=== PATIENT | female | born 1990 | race Caucasian/White ===

== ENCOUNTER 2021-06-05 23:33 | Day surgery (SDC) | payer SELFPAY ==
[~2021-06-05] VITALS: Ht 160 cm; Wt 72.6 kg
[2021-06-06] VITALS (9 sets, daily range): BP systolic 95–131; BP diastolic 66–89
--- NOTE | 2021-06-06 00:54 | ED General ---
General Chief Complaint: Skin/Wound Problems Stated Complaint: RT BREAST PAIN Nursing Triage Note: RIGHT BREAST PAIN/REDNESS/WARMTH AFTER NIPPLE PIERCING APPROX. 3 MONTHS AGO. REPORTS BEING SEEN AT [facility] X2 ET. GIVEN 2 DIFFERENT ANTIBIOTICS WITHOUT IMPROVEMENT. Source of Information: Patient (MICHAEL ANGUIANO) History of Present Illness Date Seen by Provider: Jun 06, 2021 Time Seen by Provider: 00:30 Initial Comments CC: R Breast Pain 31 yo female presents to ED with Right breast pain. Pain began 3 months ago after patient let friend coello her nipples. Patient states that the right nipple piercing became infected the next day, but managed the infection with remedies found online. 2.5 months later, patient noticed pain, redness and swelling in the same breast and sought a physician. Was placed on an unknown antibiotic at that time. Patient reports the infection stayed the same or got worse and returned to the physician 4 days later. Antibiotic was changed to doxycycline. Has been taking doxycycline for 9 days but infection has gotten worse. Currently rates the pain as an 11 out of 10. The pain does get better with ice packs. Reports the infection was initially 3-4 cm and now has progresse d to the lower half of the breast tissue. Timing/Duration: 1 Week Severity: Severe Modifying Factors: improves with Other (Heat Therapy) Associated Systoms: No Chest Pain, No Cough, No Diaphoresis; Fever/Chills (Chills no fever); No Headaches, No Nausea/Vomiting, No Rash, No Shortness of Air, No Weakness (MICHAEL ANGUIANO) Allergies and Home Medications Allergies Coded Allergies: No Known Drug Allergies (Unverified , 06/06/21) Patient Home Medication List Home Medication List Reviewed: Yes (VANDANA YIN) Review of Systems Review of Systems Constitutional: chills; No fever, No weakness EENTM: No ear pain, No eye pain Respiratory: No cough, No short of breath Cardiovascular: No chest pain, No palpitations Gastrointestinal: No abdominal pain, No nausea, No vomiting Musculoskeletal: No joint pain, No muscle pain, No muscle weakness Skin: No change in hair/nails; lesions; No rash Psychiatric/Neurological: Denies Anxiety, Denies Depressed Hematologic/Lymphatic: Denies Easy Bleeding; Easy Bruising (MICHAEL ANGUIANO) Past Qoeutgn-Lkvhak-Fmkicr Hx Patient Social History Tobacco Use?: Yes Tobacco type used: Cigarettes Smoking Status: Current Everyday Smoker Substance use?: No Alcohol Use?: Yes Alcohol Frequency: Once in a while Pt feels they are or have been: No (MICHAEL ANGUIANO) Tobacco Use?: No Use of E-Cig and/or Vaping dev: No (VANDANA YIN) Immunizations Up To Date First/Initial COVID19 Vaccinat: 04/15 Second COVID19 Vaccination Russell: 05/16 COVID19 Vaccine Integration Solution Architect: MODERNA (MICHAEL ANGUIANO) Past Medical History Surgery/Hospitalization HX: (MICHAEL ANGUIANO) Physical Exam Vital Signs Vital Signs - First Documented 06/06/21 00:01 Temp 37.0 Pulse 118 Resp 18 B/P (MAP) 153/77 (102) Pulse Ox 100 O2 Delivery Room Air (VANDANA YIN) Vital Signs Capillary Refill : Less Than 3 Seconds (MICHAEL ANGUIANO) Height, Weight, BMI Height: '" Weight: lbs. oz. kg; 28.00 BMI Method: General Appearance: WD/WN, Mild Distress Respiratory: Chest Non Tender, Lungs Clear, Normal Breath Sounds, No Accessory Muscle Use, No Respiratory Distress Cardiovascular: No Edema, No Murmur, Normal Peripheral Pulses (Radial pulse) Extremity: No Calf Tenderness, No Pedal Edema Neurologic/Psychiatric: Alert, Oriented x3 Skin: Erythema (Right breast and nipple), Other (Swelling of right breast) (MICHAEL ANGUIANO) Skin: Other (Swelling of lower half of the right breast with pointing and fluctuance, induration and very tender to palpation.) (VANDANA YIN) Progress/Results/Core Measures Suspected Sepsis SIRS Temperature: Pulse: 118 Respiratory Rate: 18 Blood Pressure 153 /77 Mean: 102 (MICHAEL ANGUIANO) Results/Orders Lab Results Laboratory Tests Test 06/06/21 01:22 Range/Units White Blood Count 15.8 H 4.3-11.0 10^3/uL Red Blood Count 4.68 3.80-5.11 10^6/uL Hemoglobin 14.5 11.5-16.0 g/dL Hematocrit 44 35-52 % Mean Corpuscular Volume 93 80-99 fL Mean Corpuscular Hemoglobin 31 25-34 pg Mean Corpuscular Hemoglobin Concent 33 32-36 g/dL Red Cell Distribution Width 13.0 10.0-14.5 % Platelet Count 349 130-400 10^3/uL Mean Platelet Volume 9.8 9.0-12.2 fL Immature Granulocyte % (Auto) 1 % Neutrophils (%) (Auto) 66 42-75 % Lymphocytes (%) (Auto) 25 12-44 % Monocytes (%) (Auto) 6 0-12 % Eosinophils (%) (Auto) 2 0-10 % Basophils (%) (Auto) 0 0-10 % Neutrophils # (Auto) 10.4 H 1.8-7.8 10^3/uL Lymphocytes # (Auto) 3.9 1.0-4.0 10^3/uL Monocytes # (Auto) 1.0 0.0-1.0 10^3/uL Eosinophils # (Auto) 0.4 H 0.0-0.3 10^3/uL Basophils # (Auto) 0.1 0.0-0.1 10^3/uL Immature Granulocyte # (Auto) 0.1 0.0-0.1 10^3/uL Neutrophils % (Manual) 73 % Lymphocytes % (Manual) 22 % Monocytes % (Manual) 2 % Eosinophils % (Manual) 3 % Sodium Level 141 135-145 MMOL/L Potassium Level 3.7 3.6-5.0 MMOL/L Chloride Level 105 98-107 MMOL/L Carbon Dioxide Level 24 21-32 MMOL/L Anion Gap 12 5-14 MMOL/L Blood Urea Nitrogen 12 7-18 MG/DL Creatinine 0.74 0.60-1.30 MG/DL Estimat Glomerular Filtration Rate 93 BUN/Creatinine Ratio 16 Glucose Level 102 70-105 MG/DL Calcium Level 9.5 8.5-10.1 MG/DL Corrected Calcium 9.7 8.5-10.1 MG/DL Total Bilirubin 0.2 0.1-1.0 MG/DL Aspartate Amino Transf (AST/SGOT) 16 5-34 U/L Alanine Aminotransferase (ALT/SGPT) 16 0-55 U/L Alkaline Phosphatase 101 40-136 U/L Total Protein 7.6 6.4-8.2 GM/DL Albumin 3.8 3.2-4.5 GM/DL (VANDANA YIN) My Orders Orders - VANDANA YIN Cbc With Automated Diff (06/06/21 01:05) Comprehensive Metabolic Panel (06/06/21 01:05) Fentanyl Inj (Sublimaze Injection) (06/06/21 01:15) Ed Iv/Invasive Line Start (06/06/21 01:06) Lactated Ringers (Lr 1000 Ml Iv Solution (06/06/21 01:15) Ceftriaxone (Rocephin) (06/06/21 01:15) Manual Differential (06/06/21 01:22) (VANDANA YIN) Medications Given in ED Current Medications Medications Dose Ordered Sig/Agustín Route Start Time Stop Time Status Last Admin Dose Admin Ceftriaxone Sodium 1000 mg/ Sterile Water 10 ml @ 200 mls/hr ONCE ONCE IV 06/06/21 01:15 06/06/21 01:17 DC 06/06/21 01:27 200 MLS/HR Fentanyl Citrate 75 mcg ONCE ONCE IVP 06/06/21 01:15 06/06/21 01:16 DC 06/06/21 01:27 75 MCG Lactated Ringer's 1,000 ml @ 0 mls/hr Q0M ONCE IV 06/06/21 01:15 06/06/21 01:16 DC 06/06/21 01:27 0 MLS/HR (VANDANA YIN) Vital Signs/I&O 06/06/21 06/06/21 00:01 01:27 Temp 37.0 37.0 Pulse 118 Resp 18 B/P (MAP) 153/77 (102) Pulse Ox 100 O2 Delivery Room Air (VANDANA YIN) Vital Signs/I&O Capillary Refill : Less Than 3 Seconds (MICHAEL ANGUIANO) Blood Pressure Mean: 102 Progress Note : Time: 01:45 Progress Note Patient is hesitant to stay in the hospital or have surgery because she is afraid she does not have insurance and will not bill afford it and she does not want to lose her job. We explained to her that this is beyond our ability to drain here in the emergency room and this needs to go to the OR. We did have a clinically supported decision-making process and which the patient did agree to stay in the hospital overnight on observation to go to the OR in the morning. Dr. Mcclure to the ER because he was already here for another patient and examined the patient and agrees with taken the patient to the OR in the morning. N.p.o. I attest that I saw this patient alongside the medical student and agree with his documented history, physical exam and review of systems except as otherwise noted. (VANDANA YIN) Departure Communication (Admissions) Time/Spoke to Admitting Phy: 01:00 Dr. Barclay agrees to observe the patient overnight, n.p.o. IV fluids antibiotics and to the OR in the morning. (VANDANA YIN) Impression Primary Impression: Abscess of right breast Disposition: ADMITTED INPATIENT Condition: Stable Admissions Decision to Admit Reason: Admit from ER (General) Decision to Admit/Date: Jun 06, 2021 Time/Decision to Admit Time: 01:00 (VANDANA YIN) Departure-Patient Inst. Referrals: [facility]/ (PCP) Primary Care Physician NOA GARZA APRN (Family) Primary Care Physician MICHAEL ANGUIANO [facility] Jun 06, 2021 00:54 VANDANA YIN Jun 06, 2021 01:46
[2021-06-06] MEDS ORDERED: cefTRIAXone 1,000 MG in WATER (STERILE) FOR INJECTION 10 ML IV ONE (01:15)
[2021-06-06] MEDS ORDERED: LACTATED RINGERS 1,000 ML IV ONE (01:15)
[2021-06-06] MEDS ORDERED: fentaNYL INJ 100 MCG/2 ML AMP IVP ONE ×2 (01:15→11:30)
[2021-06-06 01:39] LABS: BASOPHILS # (AUTO) 0.1 10^3/uL (0.0-0.1); BASOPHILS % (AUTO) 0 % (0-10); EOSINOPHILS # (AUTO) 0.4 10^3/uL (0.0-0.3); EOSINOPHILS % (AUTO) 2 % (0-10); HEMATOCRIT 44 % (35-52); HEMOGLOBIN 14.5 g/dL (11.5-16.0); LYMPHOCYTES # (AUTO) 3.9 10^3/uL (1.0-4.0); LYMPHOCYTES % (AUTO) 25 % (12-44); MEAN CORPUSCULAR HEMOGLOBIN 31 pg (25-34); MEAN CORPUSCULAR HGB CONC 33 g/dL (32-36); MEAN CORPUSCULAR VOLUME 93 fL (80-99); MEAN PLATELET VOLUME 9.8 fL (9.0-12.2); MONOCYTES % (AUTO) 6 % (0-12); NEUTROPHILS # (AUTO) 10.4 10^3/uL (1.8-7.8); NEUTROPHILS % (AUTO) 66 % (42-75); PLATELET COUNT 349 10^3/uL (130-400); WHITE BLOOD COUNT 15.8 10^3/uL (4.3-11.0)
[2021-06-06 01:48] LABS: ALBUMIN 3.8 GM/DL (3.2-4.5); POTASSIUM 3.7 MMOL/L (3.6-5.0)
[2021-06-06 01:49] LABS: CALCIUM 9.5 MG/DL (8.5-10.1)
[2021-06-06 01:50] LABS: TOTAL PROTEIN 7.6 GM/DL (6.4-8.2)
[2021-06-06 01:52] LABS: BILIRUBIN,TOTAL 0.2 MG/DL (0.1-1.0)
[2021-06-06 01:54] LABS: CREATININE SERUM 0.74 MG/DL (0.60-1.30)
[2021-06-06] MEDS ORDERED: HYDROmorphone 2 MG/ML VIAL (DILAUDID) IV ONE ×2 (02:00→10:15)
[2021-06-06 02:35] LABS: EOSINOPHILS % (MANUAL) 3 %; LYMPHOCYTES % (MANUAL) 22 %; MONOCYTES % (MANUAL) 2 %; NEUTROPHILS % (MANUAL) 73 %
[2021-06-06] MEDS ORDERED: KETOROLAC 15 MG/ML VIAL IVP PRN (03:00)
[2021-06-06] MEDS ORDERED: ONDANSETRON 4 MG/2 ML (SDV) Z0FRAN IVP PRN ×2 (03:00→11:30)
[2021-06-06] MEDS ORDERED: HYDROmorphone 2 MG/ML VIAL (DILAUDID) IV PRN (03:00)
[2021-06-06] MEDS ORDERED: ACETAMINOPHEN 650 MG SUPP (TYLENOL) PR PRN (03:00)
[2021-06-06] MEDS: LACTATED RINGERS 1,000 ML IV SCH ×2 (03:02→12:49)
[2021-06-06] MEDS: fentaNYL INJ 100 MCG/2 ML AMP IVP PRN ×2 (03:03→07:50)
--- NOTE | 2021-06-06 09:31 | Consultation - Surgery ---
ANDERSON SALAS MED STUDENT 06/06/21 0931: History of Present Illness History of Present Illness Patient Consulted On(kavitha/time) 06/06/21 09:26 Date Seen by Provider: Jun 06, 2021 Time Seen by Provider: 09:00 Reason for Visit: breast redness/swelling History of Present Illness surgery consult for: R breast abscess 31 y/o F states she had her nipples pierced 3 months ago and her R breast got infected at that time. The issue resolved spontaneously. About 2 weeks ago she complained of R breast pain, went to [facility] and was given abx. It didn't improve at that time and the abx were switched. Her pain, redness, swelling, and pain has not improved. Her pain is 10/10. She denies drainage but feels very nauseous. Allergies and Home Medications Allergies Coded Allergies: No Known Drug Allergies (Unverified , 06/06/21) Past Gooxwvj-Mrxmml-Urlyza Hx Patient Social History Smoking Status: Current Everyday Smoker (1ppd for 10 yrs) Type Used: Cigarettes Alcohol Use?: Yes Have you traveled recently?: No Surgeries History of Surgeries: Yes Surgeries: Section Respiratory History of Respiratory Disorde: No Cardiovascular History of Cardiac Disorders: No Neurological History of Neurological Disord: No Reproductive System : No Genitourinary History of Genitourinary Disor: No Gastrointestinal History of Gastrointestinal Di: No Musculoskeletal History of Musculoskeletal Dis: No Endocrine History of Endocrine Disorders: No HEENT History of HEENT Disorders: No Cancer History of Cancer: No Psychosocial History of Psychiatric Problem: No Integumentary History of Skin or Integumenta: No Family Medical History Significant Family History: Heart Disease (grandma), Other Conditions/Hx (mom - DM) Review of Systems-General Constitutional: No dizziness, No fever, No malaise, No weakness EENTM: No hearing loss, No ear pain, No blurred vision, No double vision Respiratory: No cough, No dyspnea on exertion, No short of breath Cardiovascular: chest pain (R breast tenderness); No edema Gastrointestinal: No abdominal pain, No constipation, No diarrhea, No hematemesis Genitourinary: No dysuria, No frequency Musculoskeletal: No back pain, No muscle pain Skin: change in color (right breast swelling, redness lower quadrants) Psychiatric/Neurological: Denies Headache, Denies Numbness, Denies Paresthesia Physical Exam-General Problems Physical Exam Vital Signs Vital Signs - First Documented 06/06/21 00:01 Temp 37.0 Pulse 118 Resp 18 B/P (MAP) 153/77 (102) Pulse Ox 100 O2 Delivery Room Air Capillary Refill : Less Than 3 Seconds General Appearance: mild distress Eyes: Bilateral Eye PERRL, Bilateral Eye EOMI Neck: non-tender, full range of motion Respiratory: lungs clear, normal breath sounds Cardiovascular: regular rate, rhythm, no edema, no murmur Gastrointestinal: normal bowel sounds, non tender, soft, no organomegaly Extremities: non-tender, no pedal edema, no calf tenderness Neurologic/Psychiatric: body designer II-XII nml as tested, no motor/sensory deficits, alert, oriented x 3 Skin: other (erythematous, swollen, warm, very tender, nodule in R lower quadrants of breasts) Data Review Labs Laboratory Tests 06/06/21 01:22: White Blood Count 15.8H, Red Blood Count 4.68, Hemoglobin 14.5, Hematocrit 44, Mean Corpuscular Volume 93, Mean Corpuscular Hemoglobin 31, Mean Corpuscular Hemoglobin Concent 33, Red Cell Distribution Width 13.0, Platelet Count 349, Mean Platelet Volume 9.8, Immature Granulocyte % (Auto) 1, Neutrophils (%) (Auto) 66, Lymphocytes (%) (Auto) 25, Monocytes (%) (Auto) 6, Eosinophils (%) (Auto) 2, Basophils (%) (Auto) 0, Neutrophils # (Auto) 10.4H, Lymphocytes # (Auto) 3.9, Monocytes # (Auto) 1.0, Eosinophils # (Auto) 0.4H, Basophils # (Auto) 0.1, Immature Granulocyte # (Auto) 0.1, Neutrophils % (Manual) 73, Lymphocytes % (Manual) 22, Monocytes % (Manual) 2, Eosinophils % (Manual) 3, Sodium Level 141, Potassium Level 3.7, Chloride Level 105, Carbon Dioxide Level 24, Anion Gap 12, Blood Urea Nitrogen 12, Creatinine 0.74, Estimat Glomerular Filtration Rate 93, BUN/Creatinine Ratio 16, Glucose Level 102, Calcium Level 9.5, Corrected Calcium 9.7, Total Bilirubin 0.2, Aspartate Amino Transf (AST/SGOT) 16, Alanine Aminotransferase (ALT/SGPT) 16, Alkaline Phosphatase 101, Total Protein 7.6, Albumin 3.8 06/06/21 08:18: SARS-CoV-2 RNA (RT-PCR) Not Detected 06/06/21 08:55: Urine Test NEGATIVE Assessment/Plan Assessment/Plan Admission Diagonsis right breast abscess leukocytosis nausea Plan is to go to OR this AM for I&D of breast abscess. Pt given antiemetic medication this morning. Continue abx. TRINO VORA Carroll DO 06/06/21 1021: History of Present Illness History of Present Illness Time Seen by Provider: 02:58 History of Present Illness HPI from ED: CC: R Breast Pain 31 yo female presents to ED with Right breast pain. Pain began 3 months ago after patient let friend coello her nipples. Patient states that the right nipple piercing became infected the next day, but managed the infection with remedies found online. 2.5 months later, patient noticed pain, redness and swelling in the same breast and sought a physician. Was placed on an unknown antibiotic at that time. Patient reports the infection stayed the same or got worse and returned to the physician 4 days later. Antibiotic was changed to doxycycline. Has been taking doxycycline for 9 days but infection has gotten worse. Currently rates the pain as an 11 out of 10. The pain does get better with ice packs. Reports the infection was initially 3-4 cm and now has progressed to the lower half of the breast tissue. Timing/Duration: 1 Week Severity: Severe Modifying Factors: improves with Other (Heat Therapy) Associated Systoms: No Chest Pain, No Cough, No Diaphoresis; Fever/Chills (Chills no fever); No Headaches, No Nausea/Vomiting, No Rash, No Shortness of Air, No Weakness When I saw pt last night in the ER she was in pain, this am it looks like it might be worse. She rates paint 10 out of 10. Allergies and Home Medications Allergies Coded Allergies: No Known Drug Allergies (Unverified , 06/06/21) Patient Home Medication List Home Medication List Reviewed: Yes Past Igptipq-Qmtdhd-Ptukyg Hx Patient Social History Smoking Status: Current Everyday Smoker (1ppd for 10 yrs) Type Used: Cigarettes Surgeries History of Surgeries: Yes Surgeries: Section Respiratory History of Respiratory Disorde: No Cardiovascular History of Cardiac Disorders: No Neurological History of Neurological Disord: No Reproductive System : No Genitourinary History of Genitourinary Disor: No Gastrointestinal History of Gastrointestinal Di: No Musculoskeletal History of Musculoskeletal Dis: No Endocrine History of Endocrine Disorders: No HEENT History of HEENT Disorders: No Loss of Vision: Denies Hearing Impairment: Denies Cancer History of Cancer: No Psychosocial History of Psychiatric Problem: No Integumentary History of Skin or Integumenta: Yes Skin/Integumentary Disorders: Recent Skin Changes Family Medical History Significant Family History: Heart Disease (grandma), Diabetes (mother) Review of Systems-General Constitutional: No dizziness, No fever, No malaise, No weakness EENTM: No hearing loss, No ear pain, No blurred vision, No double vision Respiratory: No cough, No dyspnea on exertion, No short of breath Cardiovascular: chest pain (R breast tenderness); No edema Gastrointestinal: No abdominal pain, No constipation, No diarrhea, No hematemesis; nausea Genitourinary: No dysuria, No frequency Musculoskeletal: No back pain, No muscle pain Skin: change in color (right breast swelling, redness lower quadrants) Psychiatric/Neurological: Denies Headache, Denies Numbness, Denies Paresthesia Physical Exam-General Problems Physical Exam General Appearance: WD/WN, severe distress Eyes: Bilateral Eye PERRL, Bilateral Eye EOMI HEENT: pharynx normal; No scleral icterus (R), No scleral icterus (L) Neck: non-tender, full range of motion Respiratory: lungs clear, normal breath sounds, no respiratory distress, no accessory muscle use Cardiovascular: regular rate, rhythm, no murmur Gastrointestinal: normal bowel sounds, non tender, soft, no organomegaly Extremities: non-tender, no pedal edema, no calf tenderness Neurologic/Psychiatric: body designer II-XII nml as tested, no motor/sensory deficits, alert, oriented x 3 Skin: other (erythematous, swollen, warm, very tender, nodule in R lower quadrants of breasts) Lymphatic: no adenopathy (neck or groin), axilla node tender (R) Assessment/Plan Assessment/Plan Assessment/Plan right breast abscess leukocytosis nausea Plan is to go to OR this AM for I&D of breast abscess. Pt given antiemetic medication this morning. Continue abx. Discussed surgery with pt; risks and complications not limited to pain, bleeding, infection, scar. Will most likely have to pack breast and then change packing daily. Will get cultures so we can tailor ABX to correct bacteria. All questions answered to her satisfaction. Supervisory-Addendum Brief Verification & Attestation Participated in pt care: history, MDM, physical Personally performed: exam, history, MDM, supervision of care Care discussed with: Medical Student Procedures: n/a Verification and Attestation of Medical Student E/M Service A medical student performed and documented this service. I then reviewed and verified all information documented by the medical student and made modifications to such information, when appropriate. I personally performed a physical exam, medical decision making and then discussed any differences between the notes and made revisions as necessary to create one note. Trino Vora , 06/06/21 , 10:23 ANDERSON SALAS MED STUDENT Jun 06, 2021 09:31 TRINO VORA DO Jun 06, 2021 10:21
[2021-06-06] MEDS ORDERED: MIDAZOLAM 2 MG/2 ML (VERSED) VIAL ONE (10:25)
[2021-06-06] MEDS ORDERED: proPOfol 200 MG/20 ML (DIPRIVAN) VIAL IV ONE (10:25)
[2021-06-06] MEDS ORDERED: LIDOCAINE PF 2% 5 ML (XYLOCAINE) VIAL ONE (10:25)
[2021-06-06] MEDS ORDERED: SEVOFLURANE (ULTANE) 15 ML INHAL SOLN ONE ×2 (10:25→11:02)
[2021-06-06] MEDS ORDERED: fentaNYL INJ 100 MCG/2 ML AMP ONE (10:25)
[2021-06-06] MEDS ORDERED: ONDANSETRON 4 MG/2 ML (SDV) Z0FRAN ONE (10:25)
[2021-06-06] MEDS ORDERED: KETOROLAC 30 MG/ML VIAL ONE (11:03)
--- NOTE | 2021-06-06 11:07 | Progress Note-Post Operative ---
Post-Operative Progess Note Surgeon (s)/Operation Research Analyst (s) Surgeon TRINO VORA DO Operation Research Analyst: none Pre-Operative Diagnosis Right breast abscess Post-Operative Diagnosis same Procedure & Operative Findings Date of Procedure 06/06/21 Procedure Performed/Findings I&D with packing right breast Anesthesia Type LMA Estimated Blood Loss Estimated blood loss (mL): scant Specimens/Packing Specimens Removed abscess culture TRINO VORA DO Jun 06, 2021 11:07
[2021-06-06] MEDS ORDERED: LACTATED RINGERS 1,000 ML IV PRN (11:15)
[2021-06-06] MEDS ORDERED: SULF1TAB38 PO (14:08)
[2021-06-06] MEDS ORDERED: ACHD5005 PO (14:08)
--- NOTE | 2021-06-06 14:10 | Discharge Inst-Surgical ---
Discharge Inst-Surgical Depart Medication/Instructions New, Converted or Re-Newed RX: Transmitted to Pharmacy Patient Instructions Follow up Appt: Make appointment for 1 week. [phone]. Come to office on Tuesday to have nurses change packing. Instructions: No strenuous activity. May shower in 24 hours, no tub bath or soaking. Use incentive spirometer at home as directed. No Smoking Skin/Wound Care: You need to leave the bandages in place and come in to have packing changed. Symptoms to Report: Appetite Changes, Extremity Discoloration, Numbness/Tingling, Swelling Increased, Bleeding Excessive, Eyesight Changes, Pain Increased, Urine Color Change, Constipation(Persistent), Fever over 101 degree F, Pain/Pressure in chest, Urinating Difficulty, Cough Up/Vomit Blood, Heart Beat Irreg/Pounding, Pain/Pressure in jaw, Cramps in feet or legs, Lightheadedness, Pain/Pressure in shoulder, Diarrhea(Persistent), Memory Changes Suddenly, Questions/Concerns, Weight gain consecutive days, Dizziness/Fainting, Nausea/Vomiting, Shortness of Breath, Weight gain over 2 pounds If questions or concerns contact your physician Or seek help at emergency department. Activity Activity as Tolerated: Yes Activity Instructions: Avoid Stress to Incision Driving Instructions: No Driving/Refer to Dr. Parish Discharge Diet: No Restrictions Diet After 24 Hours: Clear Liquid if Nauseous If Any Problems/Questions/Issu: Contact Your Physician, Go to Emergency Room Skin/Wound Care Infection Signs and Symptoms: Increased Redness, Foul Odor of Wound, Increased Drainage, Skin Itchy or Has a Rash, Increased Swelling, Temperature Above 101 F Operative Area Clean and Dry: Do Not Remove Bandage TRINO VORA DO Jun 06, 2021 14:10
--- NOTE | 2021-06-06 14:17 | OPERATIVE REPORT ---
DATE OF SERVICE: PREOPERATIVE DIAGNOSIS: Right breast abscess. POSTOPERATIVE DIAGNOSIS: Right breast abscess. PROCEDURE: Incision and drainage, right breast abscess with packing. SURGEON: Poncho Barclay DO MARKET RESEARCH INTERN: None. ANESTHESIA: LMA. SPECIMEN: Abscess culture. BLOOD LOSS: Scant. FLUIDS: Per anesthesia. POSTOPERATIVE CONDITION: Stable. INDICATION FOR PROCEDURE: The patient is a 31-year-old female who has a right breast abscess. She was in severe pain from this, site was marked preoperatively. FINDINGS: The patient had a right breast abscess mostly superficial, but extending from about the 2 o'clock to about the 10 o'clock position. PROCEDURE NOTE: After informed consent was obtained, the patient was brought to the operating room, placed on table in supine position. Right-sided marked, timeout was done. Everyone concurred. Made an incision right along the 6 o'clock access just below the nipple areolar complex and immediately got out purulent fluid. This was cultured to then be sent to pathology, expressed all the fluid. This abscess cavity went up to about the 2 o'clock position and around to about the 10 o'clock position and then down about 4 or 5 cm distally and about 3 to 4 cm outside the areolar complex, copiously irrigated with normal saline. Hemostasis obtained using Bovie electrocautery and then elected to pack with half-inch iodoform packing. Area was then cleaned and dried. Fluff dressing and then ABDs and Mg wrap was placed. The patient tolerated the procedure. Sponge, instrument and needle count correct at the end of the case. Job ID: [id number] DocumentID: [id number] Dictated Date: 06/06/2021 11:06:30 Wrapper Sorter Date: 06/06/2021 14:15:12 Dictated By: PONCHO BARCLAY DO
--- NOTE | 2021-06-06 18:54 | Anesthesia-General Post-Op ---
General Patient Condition Mental Status/LOC: Same as Preop Cardiovascular: Satisfactory Nausea/Vomiting: Absent Respiratory: Satisfactory Pain: Controlled Complications: Absent Post Op Complications Complications None Follow Up Care/Instructions Patient Instructions None needed. Anesthesia/Patient Condition Patient Condition Patient is doing well, no complaints, stable vital signs, no apparent adverse anesthesia problems. No complications reported per nursing. [place] [facility] [place]: Yes MICHAEL SHORT CRNA Jun 06, 2021 18:54
== END 2021-06-06 17:25 | disposition home or self-care (01) ==
LOC: ER 23:38 → SDC 23:39 → 4TH 23:39 → UNDOADMOB 06-06 01:45 → SDC 06-06 17:25 → UNDODISOB 06-06 17:25
PROVIDERS: ATTEND Surgery
DX: N61.1 Abscess of the breast and nipple (principal); D72.829 Elevated white blood cell count, unspecified; R11.0 Nausea; F17.210 Nicotine dependence, cigarettes, uncomplicated; Z11.2 Encounter for screening for other bacterial diseases; Z20.822 Contact with and (suspected) exposure to COVID-19
CPT/HCPCS: 36415; 80053; 84703; 85007; 85027; 87070; 87075; 87077; 87081; 87101; 87181; 87184; 87205; 87636; 96374; 96375